=== PATIENT | male | born 1965 | race Caucasian/White ===

== ENCOUNTER 2018-12-05 23:19 | Observation (INO) ==
[2018-12-06] MEDS ORDERED: Ipratropium/Albuterol Neb 3 ML IH ONE
[2018-12-06] MEDS ORDERED: methylPREDNISolone 125 MG/2 ML VIAL IVP ONE
--- NOTE | 2018-12-06 00:07 | Emergency Department Note ---
Disposition Clinical Impression: Acute exacerbation of chronic obstructive pulmonary disease (COPD) Disposition: Admitted As Inpatient Condition: Fair Referrals: NONE,PCP [Primary Care Provider] - Forms: ED Satisfaction Letter, Work/School Release Time of Disposition: 01:56 SOB HPI - General Chief Complaint: ED General Medical Stated Complaint: woke up twitching, belching sulfer Time Seen by Provider: 12/05/18 23:59 Source: patient, family Mode of arrival: private vehicle Limitations: no limitations Nursing Notes Reviewed: Yes Vital Signs Reviewed: Yes - History of Present Illness Pt Subjective Complaint: shortness of breath Onset (ago): day(s) (Couple days) Severity: moderate Consistency/Duration: constant Improves with: nothing Worsens with: exertion Known history of: COPD Associated symptoms: Reports: cough, wheezing, other (Patient states he has been twitching today. It is hard for him to even hold a glass of water because his arms and suddenly twitch. It involves all extremities.). Denies: fever Treatment prior to arrival: none Cough present: Yes Cough Frequency: Intermittent - Related Data Home Medications Medication Instructions Recorded Confirmed Albuterol Sulfate [Proair Hfa] 1 puff IH BID 02/24/17 08/12/18 Aspirin [Lo-Dose Aspirin EC] 81 mg PO DAILY 02/24/17 12/05/18 Budesonide/Formoterol 160/4.5 1 puff IH BIDR 02/24/17 12/05/18 [Symbicort 160/4.5] amLODIPine [Norvasc] 2.5 mg PO BID 02/24/17 12/05/18 Atorvastatin [Lipitor] 40 mg PO HS 04/05/17 12/05/18 Nitroglycerin [Nitrostat] 0.4 mg PO Q5M PRN 04/05/17 12/05/18 Previous Rx's Medication Instructions Recorded Ipratropium/Albuterol Neb [Duoneb] 3 ml IH Q4HR PRN #30 vial.neb 01/20/18 Allergies Allergy/AdvReac Type Severity Reaction Status Date / Time No Known Allergies Allergy Verified 05/26/15 23:03 All systems ED: reviewed and negative except as stated. Constitutional: Denies: fever, chills ENT ED: Denies: ear pain, throat pain, congestion Cardiovascular: Denies: chest pain, palpitations Respiratory: Reports: cough, dyspnea, wheezes Gastrointestinal: Reports: other (Complains of gas.). Denies: abdominal pain, n ausea, vomiting, diarrhea Integumentary: Denies: rash Neurological: Denies: headache Past Medical History - Past Medical History Attestation: Yes The following information was validated with the patient. Source: patient, obtained from family, nursing notes reviewed Medical history: Reports: GERD, hyperlipidemia, hypertension, kidney stones, coronary artery disease, COPD Surgical history: Reports: orthopedic, other, appendectomy Psychiatric history: Reports: no psych history - Social History Smoking Status: Current some day smoker Smokeless Tobacco Status: No Alcohol use: Reports: none Drug use: Reports: none Physical Exam - General Limitations: no limitations General appearance: alert, other (Patient is tachypneic and I can hear him wheezing from across the room. He occasionally has jerking his extremities.) - Head Head exam: atraumatic, normocephalic, normal inspection - Eye Eye exam: Present: normal appearance, PERRL, EOMI. Absent: scleral icterus, conjunctival injection - ENT ENT exam: normal exam, normal oropharynx, mucous membranes moist, TM's normal bilaterally, normal external ear exam - Neck Neck exam: Present: normal inspection, full ROM, trachea midline - Chest Chest inspection: Present: normal inspection, symmetric chest wall rise. Absent: tenderness - Respiratory Respiratory exam: Present: respiratory distress (Tachypnea with prolonged expiratory phase.), wheezes - Cardiovascular Cardiovascular exam: Present: regular rate, normal rhythm, normal heart sounds - Abdominal Exam Abdominal exam: Present: soft, Non-Tender, normal bowel sounds - Extremities Exam Extremities exam: Present: normal inspection. Absent: tenderness, pedal edema, calf tenderness - Neurological Exam Neurological exam: Present: alert, oriented X3. Absent: motor sensory deficit - Psychiatric Psychiatric exam: Present: normal affect, normal mood - Skin Skin exam: Present: warm, dry. Absent: rash Course Course Narrative: Patient presents with a complaint of twitching but also short of breath and cough and wheezing. Shortness of breath is been a few days. He has some chronic shortness of breath but is worse over the past couple of days. He denies any prodromal illnesses. He decided to come today because today he has been having twitching in his extremities. I see the twitching. There is no focal neurologic deficit. He is breathing heavily and tachypneic with wheezing. I am suspicious that his CO2 may be elevated that is causing this jerking. I will get an ABG and initiate breathing treatments as well as do a lab workup and x-ray. Disposition will be based on diagnostic results and reevaluation. - Reevaluation(s) Reevaluation #1: Clavicles okay and chest x-ray is okay but the patient is tachypneic and wheezing and complaining of shortness of breath and does not look well enough to be discharged home. I am going to admit him to the hospital for treatment. INR he spoke with the hospitalist who has accepted him for admission. Time: 01:54 - Consultations Consultation #1: Dr. Alfaro, hospitalist - I discussed the case with the hospitalist. He has accepted the patient for admission. Time: 01:54 Vital Signs Temperature 98.4 F 12/05/18 23:23 Pulse Rate 98 12/05/18 23:23 Respiratory Rate 19 12/05/18 23:23 Blood Pressure 145/81 12/05/18 23:23 O2 Sat by Pulse Oximetry 96 12/05/18 23:23 Temperature 98.4 F 12/05/18 23:23 Pulse Rate 93 12/06/18 00:06 Respiratory Rate 18 12/06/18 00:17 Blood Pressure 133/79 12/06/18 00:06 O2 Sat by Pulse Oximetry 95 12/06/18 00:42 Oxygen Delivery Oxygen Delivery Room Air Shortness of Breath/Dyspnea - Medical Records Medical records reviewed: Yes I reviewed the patient's medical records. - Lab Data Lab results reviewed: Yes I reviewed the patient's lab results. Result diagrams: 12/06/18 00:29 12/06/18 00:29 Lab Results 12/06/18 12/06/18 12/06/18 Range/Units 00:26 00:29 00:29 WBC 15.9 H (4.3-11.1) K/mcL RBC 5.08 (4.19-5.50) M/mcL Hgb 15.2 (12.9-16.9) g/dL Hct 45.9 (37.5-50.1) % MCV 90.4 (83.0-100.0) fL MCH 29.9 (28.0-33.3) pg MCHC 33.1 (31.6-35.5) g/dL RDW 13.8 (11.5-14.5) % Plt Count 241 (140-400) K/mcL MPV 10.2 (9.4-12.4) fL Immature Gran % 0.4 (0-4) % Seg Neutrophils % 62.0 % Lymphocytes % 27.5 % Monocytes % 6.5 % Eosinophils % 3.1 % Basophils % 0.5 % Neutrophils # 9.9 H (1.6-8.9) K/mcL Lymphocytes # 4.4 (0.6-4.6) K/mcL Monocytes # 1.0 (0.0-1.3) K/mcL Eosinophils # 0.5 (0.0-0.6) K/mcL Basophils # 0.1 (0.0-0.2) K/mcL Sample Site R Radial ABG pH 7.40 (7.32-7.45) pH Units ABG pCO2 43 (35-45) mmHg ABG pO2 72 L (85-104) mmHg ABG HCO3 27 (21-27) mEq/L ABG Total CO2 28 H (20-26) mEq/L ABG O2 Saturation 94 L (95-98) % ABG Base Excess 1 (-2 to 3) mEq/L Je Test Positive O2 Delivery Device Room Air Sodium 140 (136-145) mEq/L Potassium 4.0 (3.5-5.1) mEq/L Chloride 104 (98-107) mEq/L Carbon Dioxide 28 (23-29) mEq/L BUN 12 (6-20) mg/dL Creatinine 0.89 (0.70-1.30) mg/dL Est GFR ( Amer) > 60 (> 60) Est GFR (Non-Af Amer) > 60 (> 60) BUN/Creatinine Ratio 13 (6-26) Glucose 136 H (70-105) mg/dL Calculated Osmolality 292 (280-300) Calcium 9.4 (8.6-10.3) mg/dL Total Bilirubin 0.2 L (0.3-1.0) mg/dL Direct Bilirubin 0.1 (0.0-0.2) mg/dL Indirect Bilirubin 0.1 (0.0-1.2) mg/dL AST 15 (13-39) Units/L ALT 17 (7-52) Units/L Alkaline Phosphatase 83 (34-104) Units/L Troponin I < 0.03 (< 0.04) ng/mL B-Natriuretic Peptide (Less than 100) pg/mL Serum Total Protein 7.6 (6.4-8.9) g/dL Albumin 4.4 (3.5-5.7) g/dL Globulin 3.2 (2.4-3.5) g/dL Albumin/Globulin Ratio 1.4 (1.1-2.2) 12/06/18 Range/Units 00:29 WBC (4.3-11.1) K/mcL RBC (4.19-5.50) M/mcL Hgb (12.9-16.9) g/dL Hct (37.5-50.1) % MCV (83.0-100.0) fL MCH (28.0-33.3) pg MCHC (31.6-35.5) g/dL RDW (11.5-14.5) % Plt Count (140-400) K/mcL MPV (9.4-12.4) fL Immature Gran % (0-4) % Seg Neutrophils % % Lymphocytes % % Monocytes % % Eosinophils % % Basophils % % Neutrophils # (1.6-8.9) K/mcL Lymphocytes # (0.6-4.6) K/mcL Monocytes # (0.0-1.3) K/mcL Eosinophils # (0.0-0.6) K/mcL Basophils # (0.0-0.2) K/mcL Sample Site ABG pH (7.32-7.45) pH Units ABG pCO2 (35-45) mmHg ABG pO2 (85-104) mmHg ABG HCO3 (21-27) mEq/L ABG Total CO2 (20-26) mEq/L ABG O2 Saturation (95-98) % ABG Base Excess (-2 to 3) mEq/L Je Test O2 Delivery Device Sodium (136-145) mEq/L Potassium (3.5-5.1) mEq/L Chloride (98-107) mEq/L Carbon Dioxide (23-29) mEq/L BUN (6-20) mg/dL Creatinine (0.70-1.30) mg/dL Est GFR ( Amer) (> 60) Est GFR (Non-Af Amer) (> 60) BUN/Creatinine Ratio (6-26) Glucose (70-105) mg/dL Calculated Osmolality (280-300) Calcium (8.6-10.3) mg/dL Total Bilirubin (0.3-1.0) mg/dL Direct Bilirubin (0.0-0.2) mg/dL Indirect Bilirubin (0.0-1.2) mg/dL AST (13-39) Units/L ALT (7-52) Units/L Alkaline Phosphatase (34-104) Units/L Troponin I (< 0.04) ng/mL B-Natriuretic Peptide 29 (Less than 100) pg/mL Serum Total Protein (6.4-8.9) g/dL Albumin (3.5-5.7) g/dL Globulin (2.4-3.5) g/dL Albumin/Globulin Ratio (1.1-2.2) - Radiology Data Radiology results reviewed: Yes I reviewed the patient's radiology results. - EKG Data EKG attestation: Yes I reviewed and interpreted this EKG. EKG results narrative: Twelve-lead EKG performed at 0021 a.m. Ordered, reviewed and interpreted by ED physician shows sinus rhythm at a rate of 93. Normal axis. Good R-wave progression across the precordium. Nonspecific T-wave inversion in 1 and aVL but these are seen on previous EKGs. no acute ischemic changes otherwise. Intervals are within normal limits
[2018-12-06 00:30] LABS: ABG Base Excess 1 mEq/L (-2 to 3); ABG HCO3 27 mEq/L (21-27); ABG Oxygen Saturation 94 % (95-98); ABG PCO2 43 mmHg (35-45); ABG PO2 72 mmHg (85-104); ABG TCO2 28 mEq/L (20-26)
[2018-12-06 00:39] LABS: Basophils # 0.1 K/mcL (0.0-0.2); Basophils % 0.5 %; Eosinophils # 0.5 K/mcL (0.0-0.6); Eosinophils % 3.1 %; Hematocrit 45.9 % (37.5-50.1); Hemoglobin 15.2 g/dL (12.9-16.9); Immature Granulocytes % 0.4 % (0-4); Lymphocytes # 4.4 K/mcL (0.6-4.6); Lymphocytes % 27.5 %; Mean Corpuscular HGB Conc 33.1 g/dL (31.6-35.5); Mean Corpuscular Hemoglobin 29.9 pg (28.0-33.3); Mean Corpuscular Volume 90.4 fL (83.0-100.0); Mean Platelet Volume 10.2 fL (9.4-12.4); Monocytes % 6.5 %; Neutrophils # 9.9 K/mcL (1.6-8.9); Platelet Count 241 K/mcL (140-400); Red Blood Count 5.08 M/mcL (4.19-5.50); Red Cell Distribution Width 13.8 % (11.5-14.5)
[2018-12-06 00:59] LABS: Alanine Aminotransferase 17 Units/L (7-52); Albumin 4.4 g/dL (3.5-5.7); Albumin/Globulin Ratio 1.4 (1.1-2.2); Alkaline Phosphatase 83 Units/L (34-104); Aspartate Amino Transferase 15 Units/L (13-39); BUN/Creatinine Ratio 13 (6-26); Bilirubin,Direct 0.1 mg/dL (0.0-0.2); Bilirubin,Indirect 0.1 mg/dL (0.0-1.2); Bilirubin,Total 0.2 mg/dL (0.3-1.0); Blood Urea Nitrogen 12 mg/dL (6-20); Calcium 9.4 mg/dL (8.6-10.3); Carbon Dioxide 28 mEq/L (23-29); Chloride 104 mEq/L (98-107); Globulin 3.2 g/dL (2.4-3.5); Glucose 136 mg/dL (70-105); Osmolality,Calculated 292 (280-300); Sodium 140 mEq/L (136-145); Total Protein 7.6 g/dL (6.4-8.9); Troponin I < 0.03 ng/mL (< 0.04); eGFR For Non-African Americans > 60 (> 60)
[2018-12-06] MEDS ORDERED: Azithromycin 500 MG in D5% in Water 250 ML IVPB ONE (01:44)
[2018-12-06] MEDS ORDERED: Naloxone 0.4 MG/ML INJ IVP PRN (03:12)
[2018-12-06] MEDS: 0.9 % Sodium Chloride 1,000 ML IVC SCH ×2 (03:51→12:48)
[2018-12-06] MEDS: Ipratropium/Albuterol Neb 3 ML IH SCH ×4 (05:02→16:38)
[2018-12-06] MEDS: methylPREDNISolone 125 MG/2 ML VIAL IVP SCH ×3 (06:08→17:48)
[2018-12-06] MEDS: amLODIPine 5 MG TABLET PO SCH ×2 (08:35→19:57)
[2018-12-06] MEDS: Aspirin Enteric Coated 81 MG Tablet PO SCH (08:35)
[2018-12-06] MEDS ORDERED: Acetaminophen 325 MG TABLET PO PRN (08:46)
[2018-12-06] MEDS: Budesonide/Formoterol 160/4.5 1 PUFF INH IH SCH ×2 (09:20→21:34)
[2018-12-06] MEDS: traMADol 50 MG TABLET PO PRN ×2 (10:13→17:56)
--- NOTE | 2018-12-06 12:49 | Internal Med History&Physical ---
Date of Encounter: 12/06/18 Time of Encounter: 12:20 Assessment and Plan (1) Muscle, jerky movements (uncontrolled) Current visit: Yes Status: Acute By history. None observed on examination. Magnesium level and drug screen will be ordered. (2) Leukocytosis Current visit: No Status: Acute Present on most labs since December 2015. Left shift is seen on differential. Chest x-ray unremarkable. UA C/S will be ordered. Qualifiers: Leukocytosis type: unspecified Qualified Code(s): D72.829 - Elevated white blood cell count, unspecified (3) Diabetes mellitus Current visit: No Status: Chronic He was unaware of this diagnosis. Hemoglobin A1c was 12.1% on 04/11/2018. Recheck today. Qualifiers: Diabetes mellitus type: type 2 Diabetes mellitus rodent exterminator insulin use: without rodent exterminator use Diabetes mellitus complication status: with unspecified complications Qualified Code(s): E11.8 - Type 2 diabetes mellitus with unspecified complications Internal Medicine - H&P: HPI Chief complaint: Muscle jerking Admitted From: Emergency Dept Plans for Post Hospital Care: Home History of present illness: Mr. Farrell is a 53 year old male who came to emergency room stating he had onset of muscle jerking and dyspnea the evening of 12/04/2018 while doing usual activities. The jerking involved both shoulder areas, left more than right. Jerks would last only a fraction of a second but would recur repeatedly over time. He denies weakness. He thinks his speech may have had slight slurring at times. He came to emergency room and was evaluated and was felt to have exacerbation of COPD. He was admitted to [facility] floor for ongoing care needs. He denies previous similar episodes. He denies ingestion of unusual food or medications. He denies recreational drug use. Muscle skeletal history is pertinent for bilateral rotator cuff repair. Neurologic history is negative for large distribution strokes or seizures. Past Med Surg Social Fam HX - Past Medical History Medical history: GERD, hyperlipidemia, hypertension, kidney stones, coronary artery disease, COPD Additional medical history: SMOKER. ANGINA Psychiatric history: no psych history - Past Surgical History Surgical History: orthopedic, other, appendectomy Additional surgical history: BROKEN LEFT ARM. LEFT SHOULDER SURGERY - Social History Smoking Status: Current every day smoker Smokeless Tobacco Status: No Alcohol use: none Drug use: none - Family History Mother Adopted: No Family Member Ethnicity: Non- Living Status: Still Living Hx Family Cardiac Disorders: No Hx Family Respiratory Disorders: No Hx Family Cancer: No Hx Family GI Disorders: No Hx Family Endocrine Disorder: No Hx Family Neuromuscular Disorders: No Hx Family Neurologic Disorders: No Hx Family HEENT Disorders: Yes (reading glasses) Hx Family Autoimmune Disorders: No Internal Medicine - H&P: Meds Albuterol Sulfate [Proair Hfa] 1 puff IH BID 02/24/17 [History] Aspirin [Lo-Dose Aspirin EC] 81 mg PO DAILY 02/24/17 [History] Budesonide/Formoterol 160/4.5 [Symbicort 160/4.5] 1 puff IH BIDR 02/24/17 [History] amLODIPine [Norvasc] 2.5 mg PO BID 02/24/17 [History] Atorvastatin [Lipitor] 40 mg PO HS 04/05/17 [History] Nitroglycerin [Nitrostat] 0.4 mg PO Q5M PRN 04/05/17 [History] Ipratropium/Albuterol Neb [Duoneb] 3 ml IH Q4HR PRN #30 vial.neb 01/20/18 [Rx] Allergy/AdvReac Type Severity Reaction Status Date / Time No Known Allergies Allergy Verified 05/26/15 23:03 All Systems PM: A 10-system review of systems was performed and is negative for pertinent findings except as documented above in the HPI. Review of systems: Gen.: He states his weight has been stable for several months Cardiovascular: He has history of hypertension. 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 He denies angina DVT or pulmonary embolus. Echocardiogram 01/17/2018 showed LVEF of 55- 60%. The interventricular septum and posterior wall thickness measurements were increased at 1.40 cm. Her was LAE at 4.50 cm. The E/A ratio was 1.1. No significant valvular abnormality was seen. Respiratory: He smoked since age 10 up to 3 packs per day. He had pulmonary function testing 03/06/2018 which did not meet reproducibility standards. The FVC was 47% predicted, FEV1 45% predicted, FEV1/FVC 73%, MVV 30% predicted, and flow volume loop interpreted as obstructive. He has oxygen at home which he uses when necessary although it was prescribed to be used 18/04. GI: He denies disorders of his liver gallbladder or exocrine pancreas. : He had kidney stones remotely. He denies disorders of his kidney bladder prostate otherwise. Neurologic: As per history of present illness Endocrine: He denies diabetes. Hemoglobin A1c on 04/11/2018 was 12.1%. He was unaware of this. He denies hyperlipidemia or known thyroid disease. Hematology/oncology: He denies blood disorders cancers or anemia Psychiatric: He denies anxiety depression or other mental health issues Musko skeletal: He has had bilateral rotator cuff surgery. He denies arthritis gout or other bone joint or muscle disorders. - Constitutional Vitals: Temp Pulse Resp BP Pulse Ox 97.6 F 110 20 125/66 93 12/06/18 11:48 12/06/18 11:48 12/06/18 11:48 12/06/18 11:48 12/06/18 11:48 Exam: Gen.: He is a well-developed overweight male sitting in a chair at bedside who appears in no acute distress HEENT: Head is atraumatic and normocephalic. Eyes: EOMI. There is no scleral icterus. Mouth: Mucosa is moist. Neck: Supple and nontender. There is no thyromegaly or adenopathy noted. Heart: Regular without murmurs gallops or ectopics Lungs: No wheezes or crackles are heard. Abdomen: Soft and nontender. Exam is limited because he is in a seated position. Extremities: There is no cyanosis edema or clubbing noted. Dorsalis pedis and posttibial pulses are trace to 1+ palpable bilaterally. Neurologic: Mental status: He is talkative and a good historian. Cranial nerves: Smile is symmetric. Forehead wrinkles bilaterally. Tongue protrudes midline. EOMI. Motor: There was no obvious tremor or muscle jerks during ex amination. There is no pronator drift. Rapid finger movement is intact symmetrically. Cerebellar: Finger to nose is intact bilaterally. Skin: Warm and dry Internal Med - H&P Results - Labs CBC & Chem 7: 12/06/18 13:16 12/06/18 00:29 Labs: Short CBC 12/06/18 Range/Units 00:29 WBC 15.9 H (4.3-11.1) K/mcL Hgb 15.2 (12.9-16.9) g/dL Hct 45.9 (37.5-50.1) % Plt Count 241 (140-400) K/mcL Neutrophils # 9.9 H (1.6-8.9) K/mcL BMP 12/06/18 00:29 Sodium 140 Potassium 4.0 Chloride 104 Carbon Dioxide 28 BUN 12 Creatinine 0.89 Glucose 136 H Calcium 9.4 Cardiac Enzymes 12/06/18 12/06/18 12/06/18 Range/Units 00:29 03:24 09:01 Troponin I < 0.03 < 0.03 < 0.03 (< 0.04) ng/mL Liver Function 12/06/18 Range/Units 00:29 Total Bilirubin 0.2 L (0.3-1.0) mg/dL Direct Bilirubin 0.1 (0.0-0.2) mg/dL AST 15 (13-39) Units/L ALT 17 (7-52) Units/L Alkaline Phosphatase 83 (34-104) Units/L Albumin 4.4 (3.5-5.7) g/dL - ABG Interpretation ABG results: 12/06/18 00:26 ABG pH 7.40 ABG pCO2 43 ABG pO2 72 L ABG HCO3 27 ABG Total CO2 28 H ABG O2 Saturation 94 L ABG Base Excess 1 - Impressions ITS Impressions Chest X-Ray 12/05/18 23:59 IMPRESSION: Stable portable study. D/ / Kym Gerard Cha, MD / Kym Gerard Cha, MD Interpreting Provider: Kym Gerard Cha, MD
[2018-12-06] MEDS: Nicotine 21 MG PATCH.TD24 TD SCH (12:55)
[2018-12-06 13:44] LABS: Magnesium 1.6 mg/dL (1.6-2.6)
[2018-12-06 13:52] LABS: Basophils % 0.1 %; Hematocrit 44.5 % (37.5-50.1); Hemoglobin 14.7 g/dL (12.9-16.9); Immature Granulocytes % 0.7 % (0-4); Lymphocytes # 1.6 K/mcL (0.6-4.6); Lymphocytes % 8.3 %; Mean Corpuscular Hemoglobin 29.8 pg (28.0-33.3); Mean Corpuscular Volume 90.1 fL (83.0-100.0); Mean Platelet Volume 10.6 fL (9.4-12.4); Monocytes # 0.2 K/mcL (0.0-1.3); Monocytes % 1.2 %; Neutrophils # 16.8 K/mcL (1.6-8.9); Platelet Count 264 K/mcL (140-400); Red Blood Count 4.94 M/mcL (4.19-5.50); Red Cell Distribution Width 13.9 % (11.5-14.5); Segmented Neutrophils % 89.7 %
[2018-12-06 14:01] LABS: Thyroid Stimulating Hormone 0.532 mcIU/mL (0.340-5.600)
[2018-12-06 15:13] LABS: Bilirubin,Urine Negative (Negative); Blood,Urine Negative (Negative); Clarity,Urine Clear (Clear); Color,Urine Yellow (Yellow); Glucose,Urine (UA) 500 mg/dL (Normal); Ketones,Urine Trace mg/dL (Negative); Leukocyte Esterase,Urine Negative (Negative); Nitrite,Urine Negative (Negative); PH,Urine 5.5 pH Units (5.0-8.0); Protein,Urine Negative (Neg-Trace); Urobilinogen,Urine Normal (Normal)
[2018-12-06 15:48] LABS: Amphetamine Screen,Urine Negative ng/mL (Cutoff=1000); Barbiturate Screen,Urine Negative ng/mL (Cutoff=200); Benzodiazepines Screen,Urine Negative ng/mL (Cutoff=200); Cannabinoid Screen,Urine Negative ng/mL (Cutoff = 50); Cocaine Screen,Urine Negative ng/mL (Cutoff= 300); Opiate Screen,Urine Negative ng/mL (Cutoff=300); Phencyclidine Screen,Urine Negative ng/mL (Cutoff=25)
--- NOTE | 2018-12-06 15:51 | Electrocardiograph Report ---
[address] [address] Test Date: 2018-12-06 Pat Name: Dandy Farrell Department: [id number] Room: [facility] Gender: M Learning Support Teacher: [id number] : 1965 Requested By: Alexis Capps Order Number: [id number] Reading MD: Stella Anderson Measurements Intervals [place] Rate: 93 P: 64 CA: 141 QRS: 56 QRSD: 81 T: 127 QT: 337 QTc: 387 Interpretive Statements SINUS RHYTHM POSSIBLE LEFT ATRIAL ENLARGEMENT NONSPECIFIC ST-WAVE ABNORMALITY Electronically Signed On 12-06-2018 15:50:05 EDT by Stella Anderson
[2018-12-06 17:40] LABS: Estimated Average Glucose 154 mg/dl
[2018-12-07] MEDS ORDERED: cefTRIAXone 1,000 MG in Water for inj. (sterile) 20 ML 10 ML IVPB SCH (03:00)
[2018-12-07] MEDS ORDERED: Azithromycin 500 MG in D5% in Water 250 ML IVPB SCH (03:00)
[2018-12-07 06:39] LABS: Hematocrit 41.6 % (37.5-50.1); Hemoglobin 13.8 g/dL (12.9-16.9); Mean Corpuscular HGB Conc 33.2 g/dL (31.6-35.5); Mean Corpuscular Hemoglobin 30.1 pg (28.0-33.3); Mean Corpuscular Volume 90.8 fL (83.0-100.0); Mean Platelet Volume 10.6 fL (9.4-12.4); Platelet Count 249 K/mcL (140-400); Red Blood Count 4.58 M/mcL (4.19-5.50)
[2018-12-07 07:11] VITALS: BP 144/79
[2018-12-07 07:33] LABS: Hypersegmented Neutrophils Present (Not Present); Lymphocytes # 2.1 K/mcL (0.6-4.6); Monocytes # 0.5 K/mcL (0.0-1.3); Neutrophils # 23.4 K/mcL (1.6-8.9); Platelet Estimate Normal (Normal); Toxic Granulation Present (Not Present)
[2018-12-07] MEDS: amLODIPine 5 MG TABLET PO SCH (09:11)
[2018-12-07] MEDS: Nicotine 21 MG PATCH.TD24 TD SCH (09:11)
[2018-12-07] MEDS: Aspirin Enteric Coated 81 MG Tablet PO SCH (09:11)
--- NOTE | 2018-12-07 10:20 | Discharge Summary ---
Orders not resulted at time of discharge: Pending orders 12/06/18 00:30 Culture,Blood [] Stat Date of Encounter: 12/07/18 Time of Encounter: 10:10 - Discharge Diagnosis (1) Muscle, jerky movements (uncontrolled) Priority: Primary Status: Acute (2) Leukocytosis Priority: Secondary Status: Acute Qualifiers: Leukocytosis type: unspecified Qualified Code(s): D72.829 - Elevated white blood cell count, unspecified (3) Diabetes mellitus Priority: Secondary Status: Chronic Qualifiers: Diabetes mellitus type: type 2 Diabetes mellitus usp insulin use: without watermaster use Diabetes mellitus complication status: with unspecified complications Qualified Code(s): E11.8 - Type 2 diabetes mellitus with unspecified complications Hospital course: Mr. Farrell is a 53 year old male who came to emergency room stating he had onset of muscle jerking and dyspnea the evening of 12/04/2018 while doing usual activities. The jerking involved both shoulder areas, left more than right. Jerks would last only a fraction of a second but would recur repeatedly over time. He denies weakness. He thinks his speech may have had slight slurring at times. He came to emergency room and was evaluated and was felt to have exacerbation of COPD. He was admitted to [facility] floor for ongoing care needs. Initial orders were written by the emergency room physician. I saw him on December 06 and performed a history and physical. I did not note any significant large amplitude muscle jerking at any time. He had a fine tremor occasionally noted on outstretched hands. He had no cogwheeling or rigidity. Magnesium level returned normal at 1.6. Urine drug screen returned negative. WBC mabel to 26.0 with 88% segs and 2% bands on December 07. He had been given Rocephin and Zithromax on admission. I felt he likely had a viral infection. Chest x-ray was clear and urinalysis showed no evidence of UTI. He had hypersegmented neutrophils on differential on 12/07/2018. A B12 level was ordered with results pending at time of discharge. His PCP can follow up. Review of archived labs showed frequent leukocytosis present. His PCP can determine if referral to hematology/oncology is needed. He remained afebrile. Antibiotics will not be continued at discharge. Hemoglobin A1c returned stable at 7.0% consistent with DM 2 adequately controlled. His PCP can follow up on this. On December 07 I felt he was stable for discharge home. He will follow with his PCP within 1 week. I encouraged him to become a nonsmoker. - Time Spent with Patient Total time spent providing and/or coordinating discharge services: - Discharge Medications Prescriptions: Continue Albuterol Sulfate [Proair Hfa] 1 puff IH BID amLODIPine [Norvasc] 2.5 mg PO BID Budesonide/Formoterol 160/4.5 [Symbicort 160/4.5] 1 puff IH BIDR Aspirin [Lo-Dose Aspirin EC] 81 mg PO DAILY Atorvastatin [Lipitor] 40 mg PO HS Nitroglycerin [Nitrostat] 0.4 mg PO Q5M PRN PRN Reason: Chest Pain Ipratropium/Albuterol Neb [Duoneb] 3 ml IH Q4HR PRN #30 vial.neb PRN Reason: Shortness Of Breath/Wheezing Home Medications: Albuterol Sulfate [Proair Hfa] 1 puff IH BID 02/24/17 [History] Aspirin [Lo-Dose Aspirin EC] 81 mg PO DAILY 02/24/17 [History] Budesonide/Formoterol 160/4.5 [Symbicort 160/4.5] 1 puff IH BIDR 02/24/17 [History] amLODIPine [Norvasc] 2.5 mg PO BID 02/24/17 [History] Atorvastatin [Lipitor] 40 mg PO HS 04/05/17 [History] Nitroglycerin [Nitrostat] 0.4 mg PO Q5M PRN 04/05/17 [History] Ipratropium/Albuterol Neb [Duoneb] 3 ml IH Q4HR PRN #30 vial.neb 01/20/18 [Rx] Allergies/Adverse Reactions: Allergy/AdvReac Type Severity Reaction Status Date / Time No Known Allergies Allergy Verified 05/26/15 23:03 Date of admission: 12/06/18 02:49 Primary care physician: PCP NONE - Constitutional Vitals: Temp Pulse Resp BP Pulse Ox 98.3 F 103 16 144/79 93 12/07/18 07:10 12/07/18 07:10 12/07/18 07:10 12/07/18 07:10 12/07/18 09:25 - Patient Status Disposition: Home, Self-Care Condition: Fair - Discharge Instructions Follow Up With: NONE,PCP [Primary Care Provider] - 1 week - Diet and Activity Activity: resume usual activities as tolerated Diet: advance to your usual diet
[2018-12-07] MEDS: Budesonide/Formoterol 160/4.5 1 PUFF INH IH SCH (10:57)
== END 2018-12-07 11:59 | disposition home or self-care (01) ==
LOC: EMEROOPIK 23:19 → INPPIK 23:19
PROVIDERS: ADMIT Internal Medicine; ATTEND Internal Medicine